=== PATIENT | male | born 1935 | race Caucasian/White ===

== ENCOUNTER 2016-10-28 06:50 | Day surgery (SDC) | payer OTHER, BC ==
[~2016-10-28] VITALS: Ht 177.8 cm; Wt 92.9 kg
[~2016-10-28 06:50] MED LIST: ASPIR 8181 M1 PO; COENZYME Q10400 MG PO; CRANBERRY300 MG PO; CYANOCOBALAM1000 MCG PO; FOLIC ACID1 MG PO; INDOCIN50 MG PO; MULTI-VITAMIN1 EAC4 PO; NORVASC10 MG PO; RESVERATROL100 MG PO; SENNA LAX8.6 MG PO; TAGAMET400 MG PO; VITAMIN C1000 MG PO; VITAMIN D35000 UNIT PO; VITAMIN E400 UNIT PO
[2016-10-28 07:44] VITALS: BP 152/77
[2016-10-28 08:47] LABS: METH RESISTANT S AUREUS PCR NEGATIVE (NEGATIVE)
[2016-10-28 08:48] LABS: PROBE CHECK PASS; SPECIMEN PROCESSING CONTROL PASS
[2016-10-28] MEDS ORDERED: NORCO 5/3251 TABLET PO (10:43)
[2016-10-28 11:15] VITALS: BP 125/64
[2016-10-28 12:00] VITALS: BP 145/75
== END 2016-10-28 12:05 | disposition home or self-care (01) ==
LOC: SDC 06:50
PROVIDERS: Surgery
PROC: 0JBP0ZZ Excision of Left Lower Leg Subcutaneous Tissue and Fascia, Open Approach (ICD-10-PCS; principal; 2016-10-28)
DX: M71.38 Other bursal cyst, other site (principal); Z85.528 Personal history of other malignant neoplasm of kidney; I10 Essential (primary) hypertension; Z86.14 Personal history of Methicillin resistant Staphylococcus aureus infection; M19.90 Unspecified osteoarthritis, unspecified site; E66.3 Overweight; Z68.29 Body mass index [BMI] 29.0-29.9, adult; Z86.010 Personal history of colon polyps; Z79.82 Long term (current) use of aspirin; Z82.49 Family history of ischemic heart disease and other diseases of the circulatory system; Z84.1 Family history of disorders of kidney and ureter
CPT/HCPCS: 87641; 88305; 93005; J0131; J0690; J1100; J2405; J3010; S0020

== ENCOUNTER 2017-01-17 13:53 | Inpatient (IN) | payer OTHER, BC ==
[~2017-01-17] VITALS: Ht 177.8 cm; Wt 83.4 kg
[~2017-01-17 13:53] MED LIST changes: +NORCO 5/3251 TABLET PO
[2017-01-17 14:48] LABS: HEMATOCRIT 41.9 % (38.0-50.0); MCH 33.2 PG (29.0-34.0); MCHC 34.6 G/DL (30.0-36.0); MCV 95.9 FL (86-99); MEAN PLAT.VOLUME 9.5 uM^3 (9.0-12.4); PLATELET COUNT 202 K/uL (156-360); RBC DIS.WIDTH-CV 12.1 % (11.8-14.6); RBC DIS.WIDTH-SD 42.9 % (39-53); RED BLOOD COUNT 4.37 M/uL (4.00-5.50); WHITE BLOOD COUNT 9.5 K/uL (4.1-10.2)
[2017-01-17 15:00] LABS: CHLORIDE 104 mEq/L (99-109); POTASSIUM 4.1 mEq/L (3.7-5.4); SODIUM 138 mEq/L (136-147)
[2017-01-17 15:02] LABS: GLUCOSE 96 mg/dL (70-99)
[2017-01-17 15:04] LABS: ANION GAP 11 MEQ/L (2-14); TOTAL BILIRUBIN 0.4 mg/dL (0.0-1.0)
[2017-01-17 15:06] LABS: ALKALINE PHOSPHATASE 143 IU/L (3-129); GFR ESTIMATE (CALCULATED) > 59 mL/min/ (58.99-99999)
[2017-01-17 15:07] LABS: UREA NITROGEN (BUN) 24 mg/dL (9-23)
[2017-01-17 18:19] LABS: ADD MIUA? YES; BILIRUBIN NEGATIVE; BLOOD SMALL; COLOR YELLOW ((YELLOW)); GLUCOSE (STRIP) NEGATIVE; KETONES NEGATIVE; LEUKOCYTES SMALL; NITRITE NEGATIVE; PROTEIN (STRIP) NEGATIVE; SPECIFIC GRAVITY 1.011 (1.000-1.030); UROBILINOGEN 0.2 MG/DL (0.2-1.0)
[2017-01-17 18:31] LABS: BACTERIA NONE SEEN /HPF; EPITHELIAL CELLS RARE /HPF; HYALINE CASTS 0-5 /LPF; MUCUS NONE SEEN /LPF; UCUL ADDED? YES; WHITE BLOOD CELLS 30-40 /HPF (0-5)
[2017-01-18 00:52] VITALS: BP 131/81
[2017-01-18 03:49] VITALS: BP 120/60
[2017-01-18 06:42] LABS: MCH 32.4 PG (29.0-34.0); MCHC 33.7 G/DL (30.0-36.0); MCV 96.2 FL (86-99); MEAN PLAT.VOLUME 9.4 uM^3 (9.0-12.4); PLATELET COUNT 194 K/uL (156-360); RBC DIS.WIDTH-CV 12.2 % (11.8-14.6); RBC DIS.WIDTH-SD 43.6 % (39-53); RED BLOOD COUNT 3.95 M/uL (4.00-5.50); WHITE BLOOD COUNT 7.2 K/uL (4.1-10.2)
[2017-01-18 07:05] LABS: ANION GAP 9 MEQ/L (2-14); CHLORIDE 106 MEQ/L (99-109); GFR ESTIMATE (CALCULATED) > 59 mL/min/ (58.99-99999); GLUCOSE 93 mg/dL (70-99); MAGNESIUM 1.8 mg/dl (1.3-2.7); SAMPLE HEMOLYSIS CHECK 0; SAMPLE ICTERIC CHECK 0; SAMPLE LIPEMIA CHECK 0; SODIUM 141 MEQ/L (136-147); UREA NITROGEN (BUN) 20 mg/dL (9-23)
[2017-01-18 08:48] VITALS: BP 158/80
[2017-01-18 16:20] LABS: POINT-OF-CARE METER ID UU13113774
[2017-01-18 16:42] VITALS: BP 133/71
[2017-01-18 23:10] VITALS: BP 115/65
[2017-01-19 04:13] VITALS: BP 120/65
[2017-01-19 05:52] LABS: HEMATOCRIT 38.4 % (38.0-50.0); MCH 33.1 PG (29.0-34.0); MCHC 33.9 G/DL (30.0-36.0); MCV 97.7 FL (86-99); MEAN PLAT.VOLUME 9.3 uM^3 (9.0-12.4); PLATELET COUNT 189 K/uL (156-360); RBC DIS.WIDTH-CV 12.2 % (11.8-14.6); RBC DIS.WIDTH-SD 44.5 % (39-53); RED BLOOD COUNT 3.93 M/uL (4.00-5.50); WHITE BLOOD COUNT 5.8 K/uL (4.1-10.2)
[2017-01-19 07:51] VITALS: BP 134/86
[2017-01-19 10:27] VITALS: BP 110/66
[2017-01-19 17:24] VITALS: BP 136/73
[2017-01-19 23:59] VITALS: BP 140/77
[2017-01-20 08:10] VITALS: BP 161/81
[2017-01-20 08:43] LABS: HEMATOCRIT 41.2 % (38.0-50.0); MCH 32.9 PG (29.0-34.0); MCHC 33.7 G/DL (30.0-36.0); MCV 97.6 FL (86-99); MEAN PLAT.VOLUME 9.5 uM^3 (9.0-12.4); PLATELET COUNT 196 K/uL (156-360); RBC DIS.WIDTH-CV 12.4 % (11.8-14.6); RBC DIS.WIDTH-SD 44.6 % (39-53); RED BLOOD COUNT 4.22 M/uL (4.00-5.50); WHITE BLOOD COUNT 7.7 K/uL (4.1-10.2)
[2017-01-20 09:01] LABS: GFR ESTIMATE (CALCULATED) > 59 mL/min/ (58.99-99999); VANCOMYCIN, TROUGH 14.9 MCG/ML (10-20)
[2017-01-20] MEDS ORDERED: BACTRIM,SEPT1 TABLET PO (11:34)
== END 2017-01-20 14:30 | disposition home health service (06) | DRG 908 ==
LOC: EME 13:53 → EDOF 19:24 → 5EAST 19:24 → ENRESERV 19:33 → 5EAST 01-18 00:45 → CANRESERV 01-18 00:53 → ENRESERV 01-18 00:53 → ENPENDDIS 01-20 → 5EAST 01-20 14:30
PROVIDERS: Physician Assistant; Surgery
DX: T85.79XA Infection and inflammatory reaction due to other internal prosthetic devices, implants and grafts, initial encounter (principal); L03.311 Cellulitis of abdominal wall; N39.0 Urinary tract infection, site not specified; L02.211 Cutaneous abscess of abdominal wall; Y83.2 Surgical operation with anastomosis, bypass or graft as the cause of abnormal reaction of the patient, or of later complication, without mention of misadventure at the time of the procedure; R31.0 Gross hematuria; N20.0 Calculus of kidney; M19.90 Unspecified osteoarthritis, unspecified site; K21.9 Gastro-esophageal reflux disease without esophagitis; I10 Essential (primary) hypertension; B95.62 Methicillin resistant Staphylococcus aureus infection as the cause of diseases classified elsewhere; Z87.891 Personal history of nicotine dependence; Z85.528 Personal history of other malignant neoplasm of kidney; Z86.14 Personal history of Methicillin resistant Staphylococcus aureus infection; Z84.1 Family history of disorders of kidney and ureter; Z82.49 Family history of ischemic heart disease and other diseases of the circulatory system
CPT/HCPCS: 74177; 80048; 80053; 80202; 81003; 82565; 82948; 83735; 84100; 85027; 86850; 86900; 86901; 87070; 87075; 87077; 87086; 87147; 87186; 87205; 93005; 99281; 99285; J0330; J1100; J2405; J3010; J3370; J3480; J7030; S0020